=== PATIENT | male | born 1965 | race Caucasian/White ===

== ENCOUNTER 2023-09-04 10:29 | Day surgery (SDC) | payer BC ==
[2023-09-03 09:36] LABS: Absolute Basophils 0.1 K/uL (0-0.5); Absolute Eosinophils 0.1 K/uL (0-0.5); Absolute Lymphocytes (CBC) 1.7 K/uL (0.7-4.9); Absolute Monocytes 0.7 K/uL (0.1-1.3); Absolute Neutrophil 4.4 K/uL (1.8-8.0); Basophils % 1.2 % (0-1.3); Eosinophils % 2.1 % (0-4.4); Hematocrit 35.3 % (39.6-49.0); Hemoglobin 12.3 g/dL (13.6-17.9); Lymphocytes % 24.3 % (15.3-44.8); MCH 31.7 pg (27.0-35.0); MCV 90.6 fL (80-100); MPV 7.1 fL (7.6-11.3); Monocytes % 9.9 % (3.3-12.3); Neutrophils % 62.5 % (41.7-73.7); Nucleated Red Blood Cells % 0.1 % (0-0); Platelets 382 thou/uL (152-406); RBC Red Blood Cell Count 3.89 M/uL (4.33-5.43); Red Cell Distribution Width 12.7 % (12.1-15.2)
[2023-09-03 09:50] LABS: Anion Gap 7.9 mEq/L (5.0-15.0); Potassium 3.9 mEq/L (3.5-5.1)
--- NOTE | 2023-09-03 16:14 | EKG ---
Test Date: 2023-09-03 Test Time: 08:41:59 Operations Consultant: CLEO MEASUREMENT RESULTS: Intervals: Rate: 72 [place]: 170 QRSD: 82 QT: 394 QTc: 431 Felda: P: 64 [place]: 170 QRS: 11 T: 57 INTERPRETIVE STATEMENTS: Normal sinus rhythm Nonspecific ST abnormality Abnormal ECG No previous ECG available for comparison Electronically Signed On 09-03-23 16:13:51 CDT by Remy Cash
[2023-09-04] MEDS: Ringers Lactate 1,000 ML IV ONE (10:55)
[2023-09-04 11:25] VITALS: O2SAT 95
[2023-09-04] MEDS ORDERED: propofoL 200 MG/20 ML VIAL IV ONE ×2 (12:30→12:31)
[2023-09-04] MEDS ORDERED: LIDOCAINE 1% MPF 2 ML AMPULE ONE (12:31)
[2023-09-04 14:38] VITALS: BP 125/70; TEMP 98
== END 2023-09-04 13:50 | disposition home or self-care (01) ==
LOC: OR 10:29
PROVIDERS: ATTEND Surgery
PROC: 0DBH8ZX Excision of Cecum, Via Natural or Artificial Opening Endoscopic, Diagnostic (ICD-10-PCS; principal; 2023-09-04 12:30)
DX: Z12.11 Encounter for screening for malignant neoplasm of colon (principal); K64.8 Other hemorrhoids; K57.30 Diverticulosis of large intestine without perforation or abscess without bleeding; D12.0 Benign neoplasm of cecum; E78.5 Hyperlipidemia, unspecified
CPT/HCPCS: 93005; 85025; 80048; 36415; 88304; 45380; J2704 ×2; J7120